=== PATIENT | male | born 1960 | race Caucasian/White ===

== ENCOUNTER → 2016-05-22 | Outpatient (CLI) | payer OTHER | LOC: FIMAGING 11:40 | PROVIDERS: ATTEND Orthopaedic Surgery | DX: Z01.818 Encounter for other preprocedural examination (principal); M16.11 Unilateral primary osteoarthritis, right hip ==

== ENCOUNTER 2016-06-05 08:33 | Inpatient (IN) | payer OTHER ==
[2016-05-17 14:43] LABS: % IMMATURE GRANULYOCYTES 0.4 % (0.0-1.1); ABSOLUTE IMMATURE GRANULOCYTES 0.02 10^3/uL (0.00-0.10); ADD DIFF? NO; ADD MORPH? NO; ADD SCAN? NO; ATYPICAL LYMPHOCYTE FLAG 10 (0-99); FRAGMENT RBC FLAG 20 (0-99); HEMATOCRIT 44.8 % (40.0-51.0); HEMOGLOBIN 15.5 g/dL (13.7-17.5); LEFT SHIFT FLG 0 (0-99); LIPEMIA HEMOLYSIS FLAG 90 (0-99); MEAN CELL HEMOGLOBIN 31.2 pg (27.9-34.1); MEAN CELL HEMOGLOBIN CONCENTR. 34.6 g/dL (32.4-36.7); MEAN CELL VOLUME 90.1 fL (81.5-99.8); MEAN PLATELET VOLUME 9.7 fL (8.7-11.7); PLATELET CLUMPS FLAG 0 (0-99); PLATELET COUNT 258 10^3/uL (150-400); RED BLOOD CELL COUNT 4.97 10^6/uL (4.40-6.38)
[~2016-06-05 08:33] MED LIST: ACETAMINOPHEN 325 MG TAB PO ONE; CEFAZOLIN 2 GM/DEXTR 100 ML IV ONE; CHLORHEXIDINE GLUC HIBICLENS 118 ML BTL TP ONE; DEXAMETHASONE 4 MG/ML VIAL IVP ONE; FAMOTIDINE 20 MG TAB PO ONE; ROPI/epiNEPH/KETOROLAC JOINT COCKTAIL IU ONE; TRANEXAMIC ACID 3,000 MG in NS 50 ML IRR ONE; TRANEXAMIC ACID 3,000 MG/50 ML BAG IRR ONE
[2016-06-05] MEDS ORDERED: PROPOFOL/EMULSION 500 MG/50 ML BOTTLE IV ONE (10:21)
[2016-06-05] MEDS ORDERED: DEXAMETHASONE 4 MG/ML VIAL ONE (10:32)
[2016-06-05] MEDS ORDERED: FAMOTIDINE 20 MG TAB ONE (10:33)
[2016-06-05] MEDS ORDERED: LIDOCAINE 1% 2 ML INJ ONE (10:33)
[2016-06-05] MEDS ORDERED: ACETAMINOPHEN 325 MG TAB ONE (10:33)
[2016-06-05] MEDS ORDERED: CEFAZOLIN 2 GM/DEXTROSE/100 ML BAG IV ONE (10:33)
[2016-06-05] MEDS ORDERED: LR 1,000 ML IV ONE (10:40)
[2016-06-05] MEDS ORDERED: LIDOCAINE 1% 5 ML SDV ID PRN (10:40)
[2016-06-05] MEDS ORDERED: fentaNYL 100 MCG/2 ML INJ ONE (11:07)
[2016-06-05] MEDS ORDERED: MIDAZOLAM 2 MG/2 ML VIAL ONE ×2 (11:07→11:44)
[2016-06-05] MEDS ORDERED: LACTULOSE 20 GM/30 ML UDCUP PO PRN (12:17)
[2016-06-05] MEDS ORDERED: MAGNESIUM HYDROXIDE 30 ML UDCUP PO PRN (12:17)
[2016-06-05] MEDS ORDERED: ONDANSETRON DISINTEGRATING 4 MG TAB PO PRN (12:17)
[2016-06-05] MEDS ORDERED: BISACODYL 10 MG SUPP PR PRN (12:17)
[2016-06-05] MEDS ORDERED: PROMETHAZINE HCL 25 MG SUPPR PR PRN (12:17)
[2016-06-05] MEDS ORDERED: PHARMACY PAIN CONSULT 1 EA MISC PRN (12:17)
[2016-06-05] MEDS ORDERED: POLYETHYLENE GLYCOL 3350 17 GM PKT PO PRN (12:17)
[2016-06-05] MEDS ORDERED: DIPHENOXYLATE/ATROPINE LOMOTIL 1 TAB PO PRN (12:17)
[2016-06-05] MEDS ORDERED: CYCLOBENZAPRINE 10 MG TAB PO PRN (12:17)
[2016-06-05] MEDS ORDERED: TEMAZEPAM 15 MG CAP PO PRN (12:17)
[2016-06-05] MEDS ORDERED: diphenhydrAMINE 25 MG CAP PO PRN (12:17)
[2016-06-05] MEDS ORDERED: ONDANSETRON 4 MG/2 ML VIAL IVP PRN (12:17)
[2016-06-05] MEDS ORDERED: METOCLOPRAMIDE 10 MG/2 ML VIAL IVP PRN (12:17)
[2016-06-05] MEDS ORDERED: oxyCODONE IR 5 MG TAB PO PRN (12:17)
[2016-06-05] MEDS ORDERED: ONDANSETRON 4 MG/2 ML VIAL ONE (12:23)
--- NOTE | 2016-06-05 13:35 | POSTOPPROG ---
Post Op Note Date of Operation: 06/05/16 Surgeon: Kelsi Amaral [place] Polisher: Ami Amaral PAc Anesthesiologist: Lamont Anesthesia: Spinal Pre-op Diagnosis: R hip DJD Post-op Diagnosis: same Indication: pain Procedure: R JEANNE with robotic assist Findings: DJD hip Inf/Abcess present in the surg proc area at time of surgery?: No EBL: 100-500
[2016-06-05] MEDS: ceFAZolin 2 GM/DEXTROSE 100 ML IV SCH ×2 (16:28→22:00)
[2016-06-05] MEDS: LR 1,000 ML IV SCH (16:28)
[2016-06-05] MEDS: ACETAMINOPHEN 325 MG TAB PO SCH ×2 (18:29→23:56)
[2016-06-05] MEDS: SENNOSIDES/DOCUSATE SODIUM TAB PO SCH (19:52)
[2016-06-05] MEDS: ASPIRIN 325 MG TAB PO SCH (19:52)
[2016-06-05] MEDS: FAMOTIDINE 20 MG TAB PO SCH (19:52)
[2016-06-05] MEDS ORDERED: FLUTICASONE NASAL 120 SPRAYS/16 GM MDI EACHNARE PRN (21:00)
[2016-06-06] MEDS: LR 1,000 ML IV SCH (00:01)
[2016-06-06] MEDS: ACETAMINOPHEN 325 MG TAB PO SCH ×2 (04:59→12:08)
[2016-06-06 05:03] LABS: HEMATOCRIT 39.7 % (40.0-51.0); HEMOGLOBIN 13.8 g/dL (13.7-17.5)
[2016-06-06 07:30] VITALS: BP 106/70; PULSE 50; RESP 14; TEMP 97.4; O2SAT 97
[2016-06-06] MEDS: SENNOSIDES/DOCUSATE SODIUM TAB PO SCH (08:57)
[2016-06-06] MEDS: FAMOTIDINE 20 MG TAB PO SCH (08:58)
[2016-06-06] MEDS: ASPIRIN 325 MG TAB PO SCH (08:58)
--- NOTE | 2016-06-06 09:46 | GOP ---
[f rep st] OPERATIVE REPORT DATE OF OPERATION: 06/05/2016 SURGEON: Anny Amaral MD PANTOGRAPH MACHINE OPERATOR: LASHA Gaxiola ANESTHESIA: Spinal. PREOPERATIVE DIAGNOSIS: Right hip arthritis. POSTOPERATIVE DIAGNOSIS: Right hip arthritis. PROCEDURE PERFORMED: Total hip arthroplasty with computer navigation and robotic assist. FINDINGS: ESTIMATED BLOOD LOSS: 200 cc. INDICATIONS: The patient has progressively worsening arthritis of the hip which has failed medical management. The patient understands the treatment option including continued non-operative care and has selected surgical intervention. The patient has decided to undergo total hip arthroplasty via the direct anterior approach understanding the risks of the procedure including, but not limited to, neurovascular injury, infection, persistent pain, component wear and loosening, deep venous thrombo sis, pulmonary embolism, limb length inequality (including dislocation), and intraoperative fracture s. DESCRIPTION OF PROCEDURE: After proper identification of the patient including verification and mar roque the surgical site, the patient was brought to the operating room and placed in the supine posit ion. All bony prominences were well padded. Anesthesia was induced without complication and intrav enous prophylactic antibiotics were administered prior to skin incision. After prepping and draping in the usual sterile fashion, attention was drawn to the contralateral pe lvis for attachment of the computer navigation tracker. Three percutaneous incisions were made over the iliac crest and the pelvic tracker was affixed using threaded 3.5 mm pins yielding excellent fi xation. Using computer navigation the patient's leg length and topographical pelvic anatomy was reg istered without complication. Attention was then drawn to surgical exposure of the hip. An incision was made with a #10 [place] er blade starting 3 cm lateral and 3 cm distal to the anterior superior iliac spine measuring 8 cm t o 10 cm and coursing distally toward the greater trochanter. The skin and subcutaneous tissues were divided sharply down the fascia felice. The fascia felice was incised in line with the skin incision e xposing the underlying tensor fascia felice muscle. This muscle was bluntly elevated from the fascia and the first extracapsular Cobra retractor was placed laterally at the junction of the superior fem oral neck and greater trochanter. The lateral femoral circumflex vessels were identified, cauterize d and divided with the Aquamantys bipolar cautery. The deep investing fascia of the TFL was divided to allow proper mobilization of the muscle preventing damage during retraction. The reflected head of the rectus femoris muscle was elevated off the anterior hip capsule and a medial Cobra retractor was placed just proximal to the lesser trochanter. The anterior capsulotomy was made sharply from the superolateral acetabulum to the saddle junction o f the superior femoral neck and greater trochanter, then coursing inferomedial towards the lesser tr ochanter. The retractors were then placed in the intracapsular position for femoral neck osteotomy. Corresponding to preoperative templating the osteotomy was made with the oscillating saw protectin g the greater trochanter and soft tissues. The femoral head was removed from the acetabulum with a corkscrew and confirmed to be severely arthritic with exposed bone, deformity and osteophytes. Shonna lar finding were confirmed in the acetabulum. The Arch table extension was then placed in 40 degrees external rotation. Attention was then drawn to the acetabular preparation. After placement of the anterior and posterior Cobra retractors outsi de the labrum and intrascapular the circumferential labrum was removed sharply. The foveal contents were then removed and hemostasis obtained with cautery. The anatomy of the acetabulum was then reg istered using computer navigation. The first reamer selected was sized using the removed femoral head. Reaming began with robotic assi st at 40 degrees of abduction and 20 degrees of anteversion using computer navigation. Reaming ceas ed 0 mm less than the definitive acetabular component. The final acetabular component was inserted using the computer to achieve proper orientation yielding excellent purchase and stability in the ac etabulum. The final acetabular liner was then placed and its seating confirmed. Attention was then turned to the femur. The Arch table extension was placed in extension and adduct ion delivering the osteotomized femoral neck into the wound. A 2-pronged femoral elevator was place d at the calcar and another at the tip of the greater trochanter. The posterolateral capsule was re leased with cautery allowing mobilization of the femur lateral and anterior for preparation. The ex ternal rotators were visualized and preserved. A curette and rongeur were used to open the starting point for broaching. Serial broaching started with the #0 broach and ended with the broach that exh ibited excellent fit in the proximal femur. A change in pitch during mallet strikes was accompanied by the inability to advance the broach any further. The trial reduction was performed and fluorosc opic navigation was utilized to check limb length. Adjustments were made to equalize limb length ac cordingly. After the final trials were accepted they were removed and the wound was copiously lavaged. The fem oral component was seated to the same depth as the final broach and the femoral head was impacted on to the clean trunnion. The hip was then reduced for the final time and once more fluoroscopic navig ation used to check that limb length equality was achieved. The wound was irrigated and closed in layers, the fascia felice with 2-0 Quill, the subcutaneous tissu e with a 2-0 Quill, and the skin with Dermabond, including the small incisions for computer navigati on. Sterile dressings were applied. Final sharps and sponge counts were accurate. The patient was then transferred to a hospital bed and brought to the recovery room in stable condition. IMPLANTS: Accolade II size 7 at 127. Acetabular component a 5 mm Tritanium. The liner is a Triden t X3 at 36 mm, and the head is a Biolox Delta at 36 mm -2.5. /[id number]/MODL
--- NOTE | 2016-06-06 14:21 | SOAPPROG ---
SOAP Progress Note Assessment/Plan: Assessment: Patient is doing well POD 1 s/p R JEANNE 1)Pain management: pain is well controlled on oral pain meds. 2)VTE ppx: recommend aspirin daily for 3 weeks, cont MALIHA and SCDs 3)Anemia: level is expected initially postop. Asymptomatic. Continue to monitor D/c planning: d/c to home today pending release from PT Plan: 06/06/16 14:20 Subjective: Javid is doing well today, denies SOB, chest pain and N/V. Objective: Vital Signs Temp Pulse Resp BP Pulse Ox 36.3 C 50 L 14 106/70 97 06/06/16 07:29 06/06/16 07:29 06/06/16 07:29 06/06/16 07:29 06/06/16 07:29 Laboratory Results 06/06/16 04:51 06/05/16 06/06/16 06/07/16 05:59 05:59 05:59 Intake Total 3075 Output Total 1600 Balance 1475 RLE: incision dressing is clean and dry, NVI, +pf/df ICD10 Worksheet Patient Problems: Problems Problem Status Onset Primary localized osteoarthritis of right hip Acute
--- NOTE | 2016-06-06 14:52 | GDS ---
[f rep st] DISCHARGE SUMMARY ADMISSION DIAGNOSIS: Right hip osteoarthritis. DISCHARGE DIAGNOSIS: Right hip osteoarthritis. PROCEDURE: Right total hip arthroplasty. VTE PROPHYLAXIS: Aspirin recommended for 3 weeks daily. BRIEF DESCRIPTION OF HOSPITAL STAY: Patient was admitted for an elective joint arthroplasty. The p atient tolerated the procedure well and has passed physical therapy. The patient was given appropri ate antibiotic prophylaxis and venous thromboembolism prophylaxis. The patient's pain was well cont rolled on oral pain medication, patient was holding down food, and had urinated. Decision was made to discharge the patient. The patient was given post-operative prescriptions pre-operatively. PLAN: Please follow up as scheduled in Dr. Amaral's office June 25 at 11:30 a.m. /[id number]/MODL
== END 2016-06-06 13:51 | disposition home or self-care (01) | DRG 470 ==
LOC: F3E 10:06 → F3N 14:25
PROVIDERS: ADMIT Orthopaedic Surgery; ATTEND Orthopaedic Surgery
DX: M16.11 Unilateral primary osteoarthritis, right hip (principal); E78.00 Pure hypercholesterolemia, unspecified
CPT/HCPCS: 97110-GP; 97116-GP; 97161-GP; 97165-GO; J0171; J0690; J1100; J1885; J2250; J2405; J2704; J2795; J3010